=== PATIENT | male | born 1975 | race Caucasian/White ===

== ENCOUNTER → 2016-12-05 | Outpatient (CLI) | payer OTHER ==
[2016-12-05 17:21] LABS: CREATININE 1.4 mg/dL (0.6-1.3)
== END | disposition disaster alternative care site (69) ==
LOC: LNHI 16:48
PROVIDERS: Internal Medicine Cardiovascular Disease
DX: R00.2 Palpitations (principal)

== ENCOUNTER → 2016-12-06 | Outpatient (CLI) | payer OTHER | END | disposition disaster alternative care site (69) | LOC: LNHI 08:42 | DX: R00.2 Palpitations (principal) ==

== ENCOUNTER → 2016-12-09 | Outpatient (CLI) | payer OTHER | END | disposition disaster alternative care site (69) | LOC: GPOC 12-07 13:00 → GRAD 12:07 | DX: R07.89 Other chest pain (principal); I25.10 Atherosclerotic heart disease of native coronary artery without angina pectoris; R00.2 Palpitations ==